=== PATIENT | male | born 1995 | race Caucasian/White ===

== ENCOUNTER 2017-07-08 18:01 | Emergency (ER) | payer OTHER ==
[~2017-07-08] VITALS: Ht 152.4 cm; Wt 52.0 kg
[2017-07-08 18:05] VITALS: Ht 152.4 cm; Wt 52.0 kg
[2017-07-08] MEDS ORDERED: IBUPROFEN 200 MG TAB PO ONE (19:00)
[2017-07-08] MEDS ORDERED: HYDROCODONE/APAP (5/325) TAB PO ONE (19:00)
[2017-07-08] MEDS ORDERED: IBUP-1542 PO (19:49)
[2017-07-08] MEDS ORDERED: HYDR-906 PO (19:49)
--- NOTE | 2017-07-08 19:52 | ERD ---
ER Documentation Chief Complaint Date/Time DATE: 07/08/17 TIME: 19:50 Chief Complaint left knee pain after a fall HPI 22-year-old male complains of left knee pain after falling off a skateboard today and twisting it. Denies any direct trauma. He has sensation of instability in bilateral knee joint pain. There is no redness or bleeding or lacerations. Patient has a history of intermittent knee pain tried to get an MRI in the past but authorization was declined apparently by insurance. ROS All systems reviewed and are negative except as per history of present illness. Medications Home Meds Active Scripts Hydrocodone/Acetaminophen ([place] 5-325 Tablet) 1 Each Tablet, 1 TAB PO Q6H Y for PAIN, #7 TAB Prov:XIN LIU MD 07/08/17 Ibuprofen* (Motrin*) 600 Mg Tab, 600 MG PO Q6, #20 TAB Prov:XIN LIU MD 07/08/17 Reported Medications [None] No Conflict Check 06/04/10 Allergies Allergies: Coded Allergies: No Known Drug Allergies (Verified Allergy, Mild, 08/17/14) PMhx/Soc Medical and Surgical Hx: pt denies Medical Hx, pt denies Surgical Hx History of Surgery: No Anesthesia Reaction: No Hx Neurological Disorder: No Hx Respiratory Disorders: No Hx Cardiac Disorders: No Hx Psychiatric Problems: No Hx Miscellaneous Medical Probl: No Hx Alcohol Use: No Hx Substance Use: No Hx Tobacco Use: No Smoking Status: Current every day smoker Physical Exam Vitals Vital Signs Date Time Temp Pulse Resp B/P Pulse Ox O2 Delivery O2 Flow Rate FiO2 07/08/17 18:05 98.1 89 18 107/56 99 Physical Exam Const: [], [id number] per Head: Atraumatic Eyes: Normal Conjunctiva ENT: Normal External Ears, Nose and Mouth. Neck: Full range of motion..~ No meningismus. Resp: Clear to auscultation bilaterally Cardio: Regular rate and rhythm, no murmurs Abd: Soft, non tender, non distended. Normal bowel sounds Skin: No petechiae or rashes Back: No midline or flank tenderness Ext: No cyanosis, or edema. No gross instability of the left knee. Mild bilateral joint line tenderness. No appreciable deformities. No chest pain or Homans sign. Neur: Awake and alert Psych: Normal Mood and Affect Results 24 hrs Current Medications Medications (Trade) Dose Ordered Sig/Martin Route PRN Reason Start Time Stop Time Status Last Admin Dose Admin Ibuprofen (Motrin) 400 mg ONCE ONCE PO 07/08/17 19:00 07/08/17 19:01 DC 07/08/17 18:51 Acetaminophen/ Hydrocodone Bitart ([place] (5/325)) 1 tab ONCE ONCE PO 07/08/17 19:00 07/08/17 19:01 DC 07/08/17 18:51 Procedures/MDM X-ray left knee 3V Interpreted by me: Bones: No fracture Joints: No dislocation Foreign body: None. Impression-no acute findings left knee x-ray Patient was given ibuprofen [place] for pain. Patient was placed in left knee immobilizer and administered crutches with crutch training. Patient presents with left knee injury, possible ligamentous injury without findings of bacterial infection, fracture, dislocation, ischemia, deficits. She was a short course of M[place] and ibuprofen at home instructions for orthopedic and primary care follow-up. Patient was advised he may need a authorization from primary doctor for orthopedist visit. Should return sooner for fevers, redness, new worsening symptoms. Disclaimer: Inadvertent spelling and grammatical errors are likely due to EHR/dictation software use and do not reflect on the overall quality of patient care. Also, please note that the electronic time recorded on this note does not necessarily reflect the actual time of the patient encounter. Departure Diagnosis: Primary Impression: Knee injury Encounter type: initial encounter Laterality: left Qualified Code: S89.92XA - Knee injury, left, initial encounter Condition: Stable Patient Instructions: Knee Sprain Referrals: SANTANA SMITH MD [facility] Hours: Mon-Fri 9:00 AM - 5:00 PM Additional Instructions: No acute findings on x-ray. See orthopedist or primary doctor for further evaluation and further study. Recheck otherwise for fevers, redness, new symptoms . may need authorization from primary care doctor for orthopedist visit. XIN LIU MD Jul 08, 2017 19:51
--- NOTE | 2017-07-08 20:07 | RADRPT ---
PROCEDURE: Left knee series CLINICAL INDICATION: Pain status post trauma TECHNIQUE: AP, tunnel, and a lateral views of the right knee COMPARISON: None available FINDINGS: The osseous structures are intact with no evidence of fracture or subluxation. No joint effusion is evident. The soft tissues are normal in appearance. IMPRESSION: 1. Normal left knee series RPTAT: HDC .Heike Terrazas MD, MD Date Time Electronically viewed and signed by .Heike Terrazas MD, on 07/08/2017 20:07 .C/
[2017-07-08 21:17] VITALS: BP 107/59; PULSE 82; RESP 18; TEMP 98.3
== END 2017-07-08 21:18 | disposition home or self-care (01) ==
LOC: FTE 18:01
DX: S89.92XA Unspecified injury of left lower leg, initial encounter (principal); F17.210 Nicotine dependence, cigarettes, uncomplicated; V00.131A Fall from skateboard, initial encounter; Y92.9 Unspecified place or not applicable
CPT/HCPCS: 29505; 73562; Z7502; Z7610

== ENCOUNTER 2017-12-29 16:10 | Day surgery (SDC) | END 2017-12-29 22:30 | disposition home or self-care (01) ==

== ENCOUNTER 2019-01-26 05:08 | Emergency (ER) | payer OTHER ==
[~2019-01-26] VITALS: Ht 162.6 cm; Wt 64.5 kg
[~2019-01-26 05:08] MED LIST: HYDR-4011 PO; IBUP-1542 PO
[2019-01-26 05:10] VITALS: Ht 162.6 cm; Wt 64.5 kg
[2019-01-26] MEDS ORDERED: ACETAMINOPHEN 325 MG TAB PO ONE (07:00)
[2019-01-26] MEDS ORDERED: LIDOCAINE 1% (MPF) 5 ML VIAL INJ ONE (07:00)
[2019-01-26] MEDS ORDERED: CEPH-443 PO (10:23)
[2019-01-26] MEDS ORDERED: ACET500C5 PO (10:23)
[2019-01-26 10:38] VITALS: BP 140/73; PULSE 82; RESP 18
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
== END 2019-01-26 10:40 | disposition home or self-care (01) ==
LOC: FTE 05:08
DX: S01.511A Laceration without foreign body of lip, initial encounter (principal); R51 Headache; F17.210 Nicotine dependence, cigarettes, uncomplicated; Y08.89XA Assault by other specified means, initial encounter; Y92.89 Other specified places as the place of occurrence of the external cause
CPT/HCPCS: 12011; 70450; 70486; 72125; Z7610

== ENCOUNTER 2019-01-28 19:48 | Emergency (ER) | payer SELFPAY ==
[~2019-01-28] VITALS: Wt 63.9 kg
[~2019-01-28 19:48] MED LIST changes: +ACET500C5 PO; +CEPH-443 PO
[2019-01-28 19:57] VITALS: BP 127/62; PULSE 59; RESP 22
== END 2019-01-28 19:58 | disposition left against medical advice (07) ==
LOC: FTE 19:48
DX: Z53.21 Procedure and treatment not carried out due to patient leaving prior to being seen by health care provider (principal)

== ENCOUNTER 2019-01-31 09:00 | Emergency (ER) | payer OTHER ==
[~2019-01-31] VITALS: Ht 162.6 cm; Wt 65.3 kg
[2019-01-31 09:03] VITALS: BP 114/62; PULSE 102; RESP 18; Ht 162.6 cm; Wt 65.3 kg
[2019-01-31] MEDS ORDERED: HC30CR25 TOP (11:21)
--- NOTE | 2019-01-31 11:29 | ERD ---
ER Documentation Chief Complaint Chief Complaint suture removal upper lip HPI This is a 23-year-old male who presents ED for suture removal. Patient had sutures placed in left upper lip 5 days ago. Patient denies any fever, chills, swelling, warmth, redness, purulent drainage coming from wound. Patient is also complaining a rash along his right shoulder that is somewhat itchy and has been present for a few days. Denies trouble breathing, lip swelling, tongue swelling and other symptoms. ROS All systems reviewed and are negative except as per history of present illness. Medications Home Meds Active Scripts Hydrocortisone* Topical (Hydrocortisone* Topical) 2.5%-28.3 Gm Cream..g., 1 APPLIC TOP BID, #1 TUB Prov:TAZ HANNAH PA-C 01/31/19 Acetaminophen* (Tylophen*) 500 Mg Capsule, 1 CAP PO Q6H PRN for PAIN AND OR ELEVATED TEMP, #20 CAP Prov:CATHERINE RIDER PA-C 01/26/19 Cephalexin* (Keflex*) 500 Mg Capsule, 500 MG PO QID for 7 Days, CAP Prov:CATHERINE RIDER PA-C 01/26/19 Hydrocodone/Acetaminophen ([place] 5-325 Tablet) 1 Each Tablet, 1 TAB PO Q6H PRN for PAIN, #7 TAB Prov:XIN LIU MD 07/08/17 Ibuprofen* (Motrin*) 600 Mg Tab, 600 MG PO Q6, #20 TAB Prov:XIN LIU MD 07/08/17 Reported Medications [None] No Conflict Check 06/04/10 Allergies Allergies: Coded Allergies: No Known Drug Allergies (Unverified Allergy, Unknown, 01/26/19) PMhx/Soc History of Surgery: No Anesthesia Reaction: No Hx Neurological Disorder: No Hx Respiratory Disorders: No Hx Cardiac Disorders: No Hx Psychiatric Problems: No Hx Miscellaneous Medical Probl: No Hx Alcohol Use: Yes (12/28) Hx Substance Use: Yes (MARIJUANA 12/27,COCAINE 12/27) Hx Tobacco Use: Yes (12/27) Smoking Status: Current every day smoker FmHx Family History: No diabetes Physical Exam Vitals Vital Signs Date Temp Pulse Resp B/P (MAP) Pulse Ox O2 O2 Flow FiO2 Time Delivery Rate 01/31/19 97.8 102 18 114/62 97 09:03 (79) Physical Exam Const: No acute distress Head: Atraumatic Eyes: Normal Conjunctiva ENT: Normal External Ears, Nose and Mouth. No tongue swelling, no lip swelling, no tonsillar adenopathy, exudate or erythema, no kissing tonsils, no uvula deviation Neck: Full range of motion. No meningismus. Resp: Clear to auscultation bilaterally Cardio: Regular rate and rhythm, no murmurs Abd: Soft, non tender, non distended. Normal bowel sounds Skin: Sutures in place along patient's left upper lip with good wound approximation, no bleeding, no swelling, redness, warmth or tenderness to palpation, no purulent drainage, no lymphatic streaking, small erythematous pap ules on patient's right shoulder Neur: Awake and alert Psych: Normal Mood and Affect Procedures/MDM ER COURSE: The patient was stable throughout ED course. I kept the patient and/or family informed of laboratory and diagnostic imaging results throughout the emergency room course. The patient was promptly evaluated and a treatment plan was devised based on H&P and other data. This plan was discussed with the patient who agreed and had no further questions or concerns prior to discharge. MEDICAL DECISION MAKING: This is a 23-year-old male who presents ED for suture removal. The wound is clean, dry and intact with no evidence of infection. Patient has good wound closure and good wound approximation. There is no surrounding erythema, warmth, tenderness or lymphatic streaking. Sutures were removed without complication. Low suspicion for deep space infection, compartment syndrome, cellulitis, neurovascular injury, tendon injury. Patient is also complaining of a rash along his right shoulder. No evidence of Quiroz-Arun syndrome, toxic epidermal necrosis, among other dermatologic emergencies patient's vitals are stable and patient can be managed with close outpatient follow-up. Advised patient follow-up with primary care in the next 48 hours. Advised to return to ED with any worsening symptoms. DISPOSITION PLAN: We discussed follow up with the patient's primary care doctor within 24 to 48 hours. Patient counseled regarding my diagnostic impression and care plan. Prior to discharge all questions answered. Pt agrees with treatment plan and understands strict return precautions. Precautionary instructions provided including instructions to return to the ER if not improving or for any worsening or changing symptoms or concerns. ExitCare instructions provided. Prior to discharge, patients vital signs have been reviewed SPECIALIST FOLLOW UP RECOMMENDED: None Patient has been advised to follow up with primary care in 1-2 days. Disclaimer: Inadvertent spelling and grammatical errors are likely due to EHR/dictation software use and do not reflect on the overall quality of patient care. Also, please note that the electronic time recorded on this note does not necessarily reflect the actual time of the patient encounter. Departure Diagnosis: Primary Impression: Encounter for removal of sutures Additional Impression: Rash and other nonspecific skin eruption Condition: Stable Patient Instructions: Self-Care for Skin Rashes, Suture Removal, No Complication Referrals: [facility] YOU HAVE RECEIVED A MEDICAL SCREENING EXAM AND THE RESULTS INDICATE THAT YOU DO NOT HAVE A CONDITION THAT REQUIRES URGENT TREATMENT IN THE EMERGENCY DEPARTMENT. FURTHER EVALUATION AND TREATMENT OF YOUR CONDITION CAN WAIT UNTIL YOU ARE SEEN IN YOUR DOCTORS OFFICE WITHIN THE NEXT 1-2 DAYS. IT IS YOUR RESPONSIBILITY TO MAKE AN APPOINTMENT FOR FOLOW-UP CARE. IF YOU HAVE A PRIMARY DOCTOR --you should call your primary doctor and schedule an appointment IF YOU DO NOT HAVE A PRIMARY DOCTOR YOU CAN CALL OUR PHYSICIAN REFERRAL HOTLINE AT IF YOU CAN NOT AFFORD TO SEE A PHYSICIAN YOU CAN CHOSE FROM THE FOLLOWING [facility] [address] [facility]. [facility] [address] [facility]. [facility] [address] [facility]. [facility] [address] [facility]. [facility] [address] [facility]. [facility]. [address] Additional Instructions: Patient advised to return to the ED immediately for new or worsening symptoms. Patient advised to follow up with primary care provider in the next 24-48 hours. Patient verbalized understanding and agrees with treatment plan and course of action. If patient has no primary care they may follow up with one of the [facility] clinics listed on the following page or one of the options listed below [facility] + [address] [address] or [facility] [address] [place] [address] or [facility] [address] [place] [address] TAZ HANNAH PA-C Jan 31, 2019 11:29
== END 2019-01-31 11:45 | disposition home or self-care (01) ==
LOC: FTE 09:00
DX: R21 Rash and other nonspecific skin eruption (principal); F17.210 Nicotine dependence, cigarettes, uncomplicated
CPT/HCPCS: 99283